=== PATIENT | female | born 1955 | race Caucasian/White ===

== ENCOUNTER → 2023-04-25 09:54 | Outpatient (CLI) | payer OTHER, MEDICARE, SELFPAY ==
--- NOTE | 2023-04-25 | DI.MRI.S_ITS ---
PROCEDURE: MR CERVICAL SPINE WO CON INDICATIONS: Radiculopathy, cervical region TECHNIQUE: Noncontrast sagittal T1 spin echo and T2 fast spin echo, sagittal STIR, foraminal oblique sagittal T2 fast spin echo, and axial gradient echo or T2 fast spin echo through the cervical spine. COMPARISON: None. FINDINGS: Image quality: Excellent. Alignment and Curvature: There is normal bony alignment. Bone Marrow: Marrow demonstrates normal overall signal. Spinal Cord: Visualized spinal cord has normal size and signal. No cerebellar tonsillar herniation. Paraspinous Soft Tissues: No paravertebral masses. Prevertebral soft tissues are normal in thickness. C2-C3: Mild posterior disc bulge. No canal stenosis. No right foraminal narrowing. Mild left neural foraminal stenosis. C3-C4: Normal appearance. C4-C5: Mild disc desiccation and height loss. Mild posterior disc bulge. No canal stenosis. No foraminal narrowing. C5-C6: Severe disc desiccation and height loss. Posterior disc osteophyte complex. Effacement of the anterior CSF space. Mild canal stenosis. Moderate bilateral foraminal narrowing. C6-C7: Severe disc desiccation and height loss. Posterior disc bulge. Mild canal stenosis. Mild right and moderate left foraminal stenosis C7-T1: Normal appearance. IMPRESSION: 1. Disc desiccation and height loss at C5-6 and C6-7, severe in degree. 2. Multilevel broad-based disc bulges with resultant mild canal stenosis at C5-6 and C6-7. 3. Moderate bilateral foraminal narrowing at C5-6 and moderate left foraminal narrowing at C6-7. Dictated by: Arianna Leblanc M.D. on 04/25/2023 at 12:00 Approved by: Arianna Leblanc M.D. on 04/25/2023 at 12:11
== END ==
PROVIDERS: PCP Physician Assistant Medical; Referring Provider Physician Assistant Medical; Visit Provider Physician Assistant Medical
DX: M50.123 Cervical disc disorder at C6-C7 level with radiculopathy (principal); M48.02 Spinal stenosis, cervical region
CPT/HCPCS: 72141